=== PATIENT | female | born 1950 ===

== ENCOUNTER 2024-06-25 09:15 | Inpatient (IN) | payer OTHER ==
[~2024-06-25] VITALS: Ht 157.5 cm; Wt 101.2 kg
[2024-06-25] MEDS ORDERED: TOPROL XL25 M1 PO (12:00)
[2024-06-25] MEDS ORDERED: VASOTEC2.5 MG PO (12:00)
[2024-06-25] MEDS ORDERED: COZAAR25 MG PO (12:00)
[2024-06-25] MEDS ORDERED: METFORMIN HCL850 M1 PO (12:01)
[2024-06-25] MEDS ORDERED: LANTUS SOL100 UNIT/1 (12:01)
[2024-06-25] MEDS ORDERED: GLIPIZIDE XL2.5 MG PO (12:01)
[2024-06-25] MEDS ORDERED: SINGULAIR10 MG PO (12:02)
[2024-06-25] MEDS ORDERED: BREO ELLIPTA 21 EACH IH (12:02)
[2024-06-25 12:07] VITALS: BP 170/100
[2024-07-02] MEDS ORDERED: CEFTRIAXONE SODIUM 2,000 MG VIAL ONE (10:17)
[2024-07-02] MEDS ORDERED: DIBUCAINE 30 GM TUBE ONE (10:17)
[2024-07-02] MEDS ORDERED: POVIDONE-IODINE 118 ML BOTT TOP ONE (10:17)
[2024-07-02] MEDS ORDERED: METRONIDAZOLE/SODIUM CHLORIDE 500 MG/100 ML PIGGYBACK IV ONE (10:18)
[2024-07-02] MEDS ORDERED: HEMOSTATIC MATRIX 1 KIT KIT TOP ONE (10:46)
[2024-07-02] MEDS ORDERED: ENALAPRILAT DIHYDRATE 1.25 MG/ML VIAL IV ONE ×3 (11:42→16:10)
[2024-07-02] MEDS ORDERED: ONDANSETRON HCL 2 MG/ML VIAL IV PRN (13:00)
[2024-07-02] MEDS ORDERED: RINGERS SOLUTION,LACTATED 1,000 ML IV SCH (13:00)
[2024-07-02] MEDS ORDERED: DEXTROSE 50 % IN WATER 0.5 G/ML DISP.SYRIN IV PRN ×2 (13:00→17:15)
[2024-07-02] MEDS ORDERED: MORPHINE SULFATE 4 MG/ML CARTRIDGE IV PRN (13:00)
[2024-07-02] MEDS ORDERED: OxyCODONE HCL 5 MG TABLET (ROXICODONE) PO PRN (13:00)
[2024-07-02] MEDS ORDERED: ONDANSETRON HCL 2 MG/ML VIAL ONE (13:53)
[2024-07-02] MEDS ORDERED: MORPHINE SULFATE 4 MG/ML VIAL IV ONE ×2 (14:00→15:00)
[2024-07-02] MEDS ORDERED: ACETAMINOPHEN 500 MG GEL..CAP PO SCH (14:00)
[2024-07-02] MEDS ORDERED: METOCLOPRAMIDE HCL 5 MG/ML VIAL ONE (15:23)
[2024-07-02 16:44] LABS: HEMATOCRIT 42.2 % (36.0-45.00); MEAN CELL VOLUME 89.4 fL (80.00-100.00); MEAN CORPUSCULAR HEMOGLOBIN 29.6 pg (27.00-32.0); MEAN CORPUSCULAR HGB CONC 33.2 g/dl (32.0-36.0); PLATELET COUNT 155 K/uL (150-450); RED BLOOD COUNT 4.72 M/uL (4.00-6.00); RED CELL DISTRIBUTION WIDTH 14.4 % (11.5-14.5)
[2024-07-02] MEDS ORDERED: POLYETHYLENE GLYCOL 3350 17 GM BLIST.PACK PO SCH (17:00)
[2024-07-02] MEDS ORDERED: METOCLOPRAMIDE HCL 5 MG/ML VIAL IV SCH (17:00)
[2024-07-02] MEDS ORDERED: HYOSCYAMINE SULFATE 0.125 MG TAB.SUBL SL SCH (17:00)
[2024-07-02] MEDS ORDERED: GABAPENTIN 300 MG CAPSULE PO SCH (17:00)
[2024-07-02] MEDS ORDERED: CELECOXIB 200 MG CAPSULE PO SCH (17:00)
[2024-07-02 17:08] VITALS: BP 182/74; O2SAT 94
[2024-07-02 17:15] VITALS: BP 172/80
[2024-07-02] MEDS ORDERED: hydrALAZINE HCL 20 MG VIAL IV PRN (17:15)
[2024-07-02] MEDS ORDERED: INSULIN LISPRO 1,000 UNIT/10 ML UNITS SUBCUTANEO PRN (17:15)
[2024-07-02] MEDS ORDERED: hydrALAZINE HCL 20 MG VIAL IV STA (17:16)
[2024-07-02 19:09] VITALS: BP 152/74; O2SAT 94
[2024-07-02] MEDS ORDERED: FAMOTIDINE/PF 20 MG/2 ML VIAL IV PUSH SCH (21:00)
[2024-07-02] MEDS ORDERED: SIMETHICONE 125 MG CAPSULE PO SCH (21:00)
[2024-07-03 00:59] VITALS: BP 101/61; O2SAT 98
[2024-07-03] MEDS ORDERED: LORazepam 2 MG/ML VIAL IM ONE (03:00)
[2024-07-03] MEDS ORDERED: DIPHENHYDRAMINE HCL 50 MG/ML VIAL 1ML IM ONE ×2 (03:15→09:30)
[2024-07-03] MEDS ORDERED: HALOPERIDOL LACTATE 5 MG/ML AMPUL IM ONE ×2 (03:15→09:30)
[2024-07-03 07:22] LABS: ALBUMIN 2.9 gm/dL (3.4-5.0); CREATININE SERUM 0.94 mg/dL (0.55-1.02); GFR 58.53; PHOSPHOROUS 4.4 mg/dL (2.5-4.9); POTASSIUM 4.02 mEq/L (3.5-5.1)
[2024-07-03 07:41] LABS: HEMATOCRIT 39.9 % (36.0-45.00); HEMOGLOBIN 12.9 g/dL (12.0-15.00); MEAN CELL VOLUME 91.4 fL (80.00-100.00); MEAN CORPUSCULAR HEMOGLOBIN 29.5 pg (27.00-32.0); MEAN CORPUSCULAR HGB CONC 32.3 g/dl (32.0-36.0); PLATELET COUNT 181 K/uL (150-450); RED BLOOD COUNT 4.36 M/uL (4.00-6.00); RED CELL DISTRIBUTION WIDTH 13.8 % (11.5-14.5)
[2024-07-03 07:53] LABS: MAGNESIUM 1.1 mg/dL (1.8-2.4)
[2024-07-03 08:49] VITALS: BP 149/82; O2SAT 99
[2024-07-03] MEDS ORDERED: LACTOBACILLUS ACIDOPHILUS 1 CAP CAP PO SCH (09:00)
[2024-07-03] MEDS ORDERED: ENALAPRIL MALEATE 20 MG TABLET PO SCH (09:00)
[2024-07-03] MEDS ORDERED: LACTULOSE 20 G/30 ML BLIST.PACK PO SCH (09:00)
[2024-07-03] MEDS ORDERED: AMLODIPINE BESYLATE 10 MG TABLET PO SCH (09:00)
[2024-07-03] MEDS ORDERED: MAGNESIUM SULFATE IN WATER 4 GM/100 ML PIGGYBACK IV NR ×2 (10:00→17:00)
[2024-07-03 16:00] VITALS: BP 150/69; O2SAT 94
[2024-07-03] MEDS ORDERED: ENOXAPARIN SODIUM 40 MG/0.4 ML SYRINGE SUBCUTANEO SCH (17:00)
[2024-07-04 00:19] VITALS: BP 150/77; O2SAT 92
[2024-07-04 08:46] VITALS: BP 148/76; O2SAT 96
[2024-07-04] MEDS ORDERED: ENOXAPARIN SODIUM 40 MG/0.4 ML SYRINGE SUBCUTANEO SCH (09:00)
[2024-07-04 12:05] LABS: HEMOGLOBIN 12.5 g/dL (12.0-15.00); MEAN CELL VOLUME 90.4 fL (80.00-100.00); PLATELET COUNT 155 K/uL (150-450); RED BLOOD COUNT 4.32 M/uL (4.00-6.00); RED CELL DISTRIBUTION WIDTH 14.1 % (11.5-14.5)
[2024-07-04 12:28] LABS: CALCIUM 8.3 mg/dL (8.5-10.1); CREATININE SERUM 1.07 mg/dL (0.55-1.02); GFR 50.41; POTASSIUM 3.92 mEq/L (3.5-5.1)
[2024-07-04 14:00] VITALS: BP 144/80; O2SAT 93
== END 2024-07-04 16:54 | disposition home or self-care (01) | DRG 331 ==
LOC: SURH 07-01 09:15 → O/R 07-02 08:42 → SURH 07-02 08:42
PROVIDERS: Internal Medicine; ADMIT Colon & Rectal Surgery; ATTEND Colon & Rectal Surgery
PROC: 0JQC0ZZ Repair Pelvic Region Subcutaneous Tissue and Fascia, Open Approach (ICD-10-PCS; 2024-07-02)
PROC: 0DUR0JZ Supplement Anal Sphincter with Synthetic Substitute, Open Approach (ICD-10-PCS; 2024-07-02)
PROC: 0DBP7ZZ Excision of Rectum, Via Natural or Artificial Opening (ICD-10-PCS; principal; 2024-07-02 12:15)
DX: K62.3 Rectal prolapse (principal); N81.6 Rectocele; R15.9 Full incontinence of feces